=== PATIENT | male | born 1940 | race Caucasian/White ===

== ENCOUNTER → 2016-11-13 | Outpatient (CLI) | payer MEDICARE, OTHER ==
--- NOTE | 2016-11-13 13:36 | RAD ---
Indication: Pain and swelling. Technique: Grayscale, color-flow, and spectral waveform analysis was performed. Findings: The exam is positive for occlusive thrombus from the popliteal vein through the common femoral vein. Posterior tibial veins appear patent. Great saphenous vein, a superficial vein, also demonstrates occlusive thrombus. chief radiologic technologist gave preliminary report to the ordering clinician. Impression: Exam is positive for extensive deep vein thrombosis in the left lower extremity.
== END | disposition home or self-care (01) ==
LOC: US 12:48
PROVIDERS: ATTEND Family Medicine
DX: M79.605 Pain in left leg (principal); M79.89 Other specified soft tissue disorders
CPT/HCPCS: 93971